=== PATIENT | female | born 1985 | race Caucasian/White ===

== ENCOUNTER 2021-03-03 08:23 | Emergency (ER) | payer SELFPAY ==
[~2021-03-03] VITALS: Ht 162.6 cm; Wt 69.4 kg
[2021-03-03] MEDS ORDERED: CASIRIVIMAB/IMDEVIMAB 10 ML in SODIUM CHLORIDE 0.9% 100 ML IV ONE (08:30)
[2021-03-03] MEDS ORDERED: DEXAMETHASONE SOD PHOS 10 MG/1 ML VIAL IV STA (09:03)
[2021-03-03] MEDS ORDERED: VENTOLIN HFA18 GM INH (11:27)
[2021-03-03] MEDS ORDERED: PREDNISONE20 MG PO (11:27)
[2021-03-03] MEDS ORDERED: AZITHROMYCIN250 MG PO (11:27)
== END 2021-03-03 12:07 | disposition home or self-care (01) ==
LOC: ER 09:17
DX: R06.02 Shortness of breath (principal); U07.1 COVID-19; J06.9 Acute upper respiratory infection, unspecified; R53.81 Other malaise
CPT/HCPCS: 71045; 99283; J1100; J7050